=== PATIENT | male | born 1970 | race Caucasian/White ===

== ENCOUNTER 2020-07-03 19:55 | Inpatient (IN) | payer OTHER ==
--- NOTE | 2020-07-03 20:41 | HP ---
COWS - Scale Resting Pulse: 0= [place] 80 or Below Sweatin= Beads of Sweat on Face Restless Observation: 0= Sits Still Pupil Size: 0= Normal to Room Light Bone or Joint Aches: 2= Severe Diffuse Aches Runny Nose/ Eye Tearin= Runny Nose/Eyes GI Upset > 30mins: 2= Nausea/Diarrhea (diarrhea x 2) Tremor Observation: 2= Slight Tremor Visible Yawning Observation: 0= None Anxiety or Irritability: 4=Extreme Anxiety Goose Flesh Skin: 0=Smooth Skin COWS Score: 15 CIWA Score - Admission Criteria [facility] Guidelines: Admission for Medically Managed Detox: Requires at least one of the followin. CIWA greater than 12 2. Seizures within the past 24 hours 3. Delirium tremens within the past 24 hours 4. Hallucinations within the past 24 hours 5. Acute intervention needed for co occurring medical disorder 6. Acute intervention needed for co occurring psychiatric disorder 7. Severe withdrawal that cannot be handled at a lower level of care (continued vomiting, continued diarrhea, abnormal vital signs) requiring intravenous medication and/or fluids 8. Admission [facility] Chief Complaint: Seeking admission to detox from Heroin Allergies/Adverse Reactions: Allergies Allergy/AdvReac Type Severity Reaction Status Date / Time No Known Allergies Allergy Verified 07/03/20 20:45 History of Present Illness: 49 years old male with a history of heroin dependence is seeking admission to detox. This is first admission to [facility] but patient reports that he was admitted for detox here about 2003. He reports use of 7-10 bags ofr heroin daily. He has medical history of GERD, psych. history of depression and denies suicidal ideation at this time. He is unemployed, lives with his family and denies pending legal issues. He denies blackouts and overdose. Confidential Drug Utilization Report Search Terms: rayshawn palafox, 1970Search Date: 07/03/2020 20:39:18 PM The Drug Utilization Report below displays all of the controlled substance prescriptions, if any, that your patient has filled in the last twelve months. The information displayed on this report is compiled from pharmacy submissions to the Department, and accurately reflects the information as submitted by the pharmacies. Others' Prescriptions Patient Name: Rayshawn Wolf Date: 1970 Address: [address] [place] [id number]: Male Rx Written Rx Dispensed Drug Quantity Days Supply Prescriber Name Payment Method Dispenser 04/04/2020 04/26/2020 zolpidem tartrate 10 mg tablet 30 30 Juni, Purificacion (Dnp) Insurance [facility] 04/04/2020 04/10/2020 oxycodone hcl 20 mg tablet 90 30 Juni, Purificacion (Dnp) [facility] 04/04/2020 04/06/2020 dextroamp-amphetamin 30 mg tab 60 30 Juni, Purificacion (Dnp) [facility] 04/04/2020 04/04/2020 alprazolam 2 mg tablet 90 30 Juni, P urificacion (Dnp) Insurance [facility] 02/29/2020 03/08/2020 oxycodone hcl 20 mg tablet 90 30 Juni, Purificacion (Dnp) [facility] 02/29/2020 03/01/2020 dextroamp-amphetamin 30 mg tab 60 30 Juni, Purificacion (Dnp) [facility] 02/29/2020 02/29/2020 alprazolam 2 mg tablet 90 30 Juni, Purificacion (Dnp) Insurance [facility] 02/29/2020 02/29/2020 zolpidem tartrate 10 mg tablet 30 30 Juni, Purificacion (Dnp) Insurance [facility] 02/03/2020 02/07/2020 oxycodone hcl 20 mg tablet 90 30 Juni, Purificacion (Dnp) [facility] 01/23/2020 01/31/2020 dextroamp-amphetamin 30 mg tab 60 30 Juni, Purificacion (Dnp) [facility] 01/23/2020 01/24/2020 alprazolam 2 mg tablet 90 30 Juni, Purificacion (Dnp) Insurance [facility] 01/23/2020 01/23/2020 zolpidem tartrate 10 mg tablet 30 30 Juni, Purificacion (Dnp) Insurance [facility] Patient History - Patient Medical History Hx Anemia: No Hx Asthma: No Hx Chronic Obstructive Pulmonary Disease (COPD): No Hx Cancer: No Hx Cardiac Disorders: No Hx Congestive Heart Failure: No Hx Hypertension: No Hx Hypercholesterolemia: No Hx Pacemaker: No HX Cerebrovascular Accident: No Hx Seizures: No Hx Diabetes: No Hx Gastrointestinal Disorders: Yes (GERD) Hx Liver Disease: No Hx Genitourinary Disorders: No Hx Sexually Transmitted Disorders: No Hx Renal Disease (ESRD): No Hx Thyroid Disease: No Hx Human Immunodeficiency Virus (HIV): No (Negative ) Hx Hepatitis C: No Hx Depression: Yes Hx Suicide Attempt: No (Denies suicidal ideation at this time) Hx Bipolar Disorder: Yes Hx Schizophrenia: No - Patient Surgical History Past Surgical History: No - PPD History Previous Implant?: Yes Documented Results: Negative w/o proof Implanted On Prior [facility] Admission?: No PPD to be Administered?: Yes - Reproductive History Patient is a Female of Child Bearing Age (11 -55 yrs old): No (Male) - Smoking Cessation Smoking history: Current every day smoker Have you smoked in the past 12 months: Yes Aproximately how many cigarettes per day: 10 Hx Chewing Tobacco Use: No Initiated information on smoking cessation: Yes 'Breaking Loose' booklet given: 07/03/20 - Substance & Tx. History Hx Alcohol Use: No Hx Substance Use: Yes Substance Use Type: Cocaine, Heroin, Opiates Hx Substance Use Treatment: No - Substances abused Heroin Substance route: Inhalation Frequency: Daily Amount used: 7-10 bags Age of first use: 36 Date of last use: 07/03/20 Admission Physical Exam [facility] - Physical General Appearance: Yes: Moderate Distress, Tremorous, Anxious HEENTM: Yes: Rhinorrhea Respiratory: Yes: Lungs Clear, Normal Breath Sounds, No Respiratory Distress Neck: Yes: Within Normal Limits Breast: Yes: Breast Exam Deferred Cardiology: Yes: Within Normal Limits Abdominal: Yes: Normal Bowel Sounds Genitourinary: Yes: Within Normal Limits Back: Yes: Normal Inspection Musculoskeletal: Yes: Back pain Extremities: Yes: Tremors Neurological: Yes: Within Normal Limits Integumentary: Yes: Warm Lymphatic: Yes: Within Normal Limits - Diagnostic (1) Opioid dependence with withdrawal Current Visit: Yes Status: Acute (2) Nicotine dependence Current Visit: Yes Status: Chronic Qualifiers: Nicotine product type: cigarettes Substance use status: uncomplicated Qualified Code(s): F17.210 - Nicotine dependence, cigarettes, uncomplicated (3) GERD (gastroesophageal reflux disease) Current Visit: Yes Status: Chronic Qualifiers: Esophagitis presence: esophagitis presence not specified Qualified Code(s): K21.9 - Gastro-esophageal reflux disease without esophagitis (4) Depression Current Visit: Yes Status: Chronic Qualifiers: Depression Type: unspecified Qualified Code(s): F32.9 - Major depressive disorder, single episode, unspecified Cleared for Admission [facility] - Detox or Rehab [facility] Level of Care: Medically Managed Detox Regimen/Protocol: Methadone Claeared for Rehab Admission: No Breathalyzer - Breathalyzer Breathalyzer: 0 Urine Drug Screen - Test Device Lot number: [id number] Expiration date: 01/30/22 - Control Is test valid?: Yes - Results Drug screen NEGATIVE: No Urine drug screen results: PINO-Cocaine, FEN-Fentanyl, MOP-Opiates, OXY- Oxycodone, MTD-Methadone Inpatient Rehab Admission - Rehab Decision to Admit Inpatient rehab admission?: No
[2020-07-03] MEDS ORDERED: METHADONE HCL 10 MG TABLET (FOR DETOX USE ONLY) PO ONE (21:07)
[2020-07-03] MEDS ORDERED: ONDANSETRON *ODT* 4 MG TABLET SL PRN (21:07)
[2020-07-03] MEDS ORDERED: cloNIDine HCL 0.1 MG TABLET PO PRN (21:07)
[2020-07-03] MEDS ORDERED: MENTHOL/PHENOL 1 EACH UD MM PRN (21:07)
[2020-07-03] MEDS ORDERED: BISMUTH SUBSALICYLATE 524 MG/30 ML UD PO PRN (21:07)
[2020-07-03] MEDS ORDERED: MAGNESIUM HYDROX 2400MG/30ML ORAL SUSPENSION 30 ML CUP PO PRN (21:07)
[2020-07-03] MEDS ORDERED: hydrOXYzine PAMOATE 25 MG CAPSULE (FP) PO PRN (21:07)
[2020-07-03] MEDS ORDERED: ACETAMINOPHEN 325 MG TABLET (FP) PO PRN ×2 (21:07)
[2020-07-03] MEDS ORDERED: IBUPROFEN 400 MG TABLET (FP) PO PRN (21:07)
[2020-07-03] MEDS ORDERED: MAGNESIUM CITRATE 300 ML BOTTLE PO PRN (21:07)
[2020-07-03] MEDS ORDERED: NICOTINE POLACRILEX 2 MG GUM BUC PRN (21:07)
[2020-07-03] MEDS ORDERED: METHOCARBAMOL 500 MG TABLET PO PRN (21:07)
[2020-07-03] MEDS ORDERED: MAG HYDROX/AL HYDROX/SIMETH 30 ML UNIT-DOSE CUP PO PRN (21:07)
[2020-07-03 21:21] VITALS: BMI 27.3
[2020-07-03] MEDS: THIAMINE HCL 100 MG TABLET (FP) PO SCH (22:20)
[2020-07-03] MEDS: MELATONIN 5 MG TABLETS PO SCH (22:23)
[2020-07-04] MEDS ORDERED: METHADONE HCL 10 MG TABLET (FOR DETOX USE ONLY) ONE (09:14)
[2020-07-04] MEDS ORDERED: METHADONE HCL 5 MG TABLET (FOR DETOX USE ONLY) ONE (09:14)
[2020-07-04] MEDS ORDERED: METHADONE (DETOX) 20 MG, METHADONE (DETOX) 5 MG PO ONE (10:00)
[2020-07-04] MEDS: PRENATAL VITAMINS W/ FOLIC ACID TABLET (FP) PO SCH (10:20)
[2020-07-04] MEDS: NICOTINE 14 MG/24 HOURS TOPICAL PATCH TD SCH (10:20)
[2020-07-04 10:58] LABS: HEMATOCRIT 43.3 % (35.4-49); HEMOGLOBIN 14.5 GM/dL (11.7-16.9); MCH 29.3 pg (25.7-33.7); MCHC 33.6 g/dl (32.0-35.9); MEAN CELL VOLUME 87.2 fl (80-96); MEAN PLT VOLUME 8.3 fl (7.5-11.1); PLATELET COUNT 196 K/MM3 (134-434); RBC 4.96 M/mm3 (4.00-5.60); RDW 13.3 % (11.9-15.9); WHITE BLOOD COUNT 7.1 K/mm3 (4.0-10.0)
[2020-07-04 11:19] LABS: BILIRUBIN,TOTAL 0.6 mg/dL (0.2-1); BLOOD UREA NITROGEN 19.6 mg/dL (7-18); CALCIUM 8.9 mg/dL (8.5-10.1); POTASSIUM 4.1 mmol/L (3.5-5.1)
[2020-07-04 11:22] LABS: TOT PROT 7.2 g/dl (6.4-8.2)
--- NOTE | 2020-07-04 12:01 | PN ---
[facility] COWS - Scale Resting Pulse: 0= [place] 80 or Below Sweatin= Chills/Flushing Restless Observation: 1= Difficult to Sit Still Pupil Size: 0= Normal to Room Light Bone or Joint Aches: 1= Mild Discomfort Runny Nose/ Eye Tearin= Runny Nose/Eyes GI Upset > 30mins: 0= None Tremor Observation of Outstretched Hands: 1= Tremor [place], Not Seen Yawning Observation: 2= >3x During Session Anxiety or Irritability: 2=Irritable/Anxious Goose Flesh Skin: 0=Smooth Skin COWS Score: 10 BHS Progress Note (SOAP) Subjective: sweats chills body aches interrupted sleep agitation body aches Objective: 07/04/20 12:00 Vital Signs Temperature 97.5 F L 07/04/20 09:37 Pulse Rate 76 07/04/20 09:37 Respiratory Rate 18 07/04/20 09:37 Blood Pressure 105/56 L 07/04/20 09:37 O2 Sat by Pulse Oximetry (%) 97 07/04/20 09:37 Laboratory Tests 07/04/20 07/04/20 07/04/20 08:45 08:45 08:45 WBC 7.1 RBC 4.96 Hgb 14.5 Hct 43.3 MCV 87.2 MCH 29.3 MCHC 33.6 RDW 13.3 Plt Count 196 MPV 8.3 Sodium 143 Potassium 4.1 Chloride 108 H Carbon Dioxide 31 Anion Gap 4 L BUN 19.6 H Creatinine 1.0 Est GFR (CKD-EPI)AfAm 102.69 Est GFR (CKD-EPI)NonAf 88.61 Random Glucose 72 L Calcium 8.9 Total Bilirubin 0.6 AST 18 ALT 21 Alkaline Phosphatase 66 Total Protein 7.2 Albumin 4.0 Syphilis Serology Non-reactive labs noted aaox3 ambulating no acute distress Assessment: 07/04/20 12:01 withdrawals Plan: continue detox
--- NOTE | 2020-07-04 12:40 | EKG ---
Test Reason : Blood Pressure : / mmHG Vent. Rate : 074 BPM Atrial Rate : 074 BPM P-R Int : 120 ms QRS Dur : 096 ms QT Int : 394 ms P-R-T Axes : 048 078 066 degrees QTc Int : 437 ms NORMAL SINUS RHYTHM NORMAL ECG NO PREVIOUS ECGS AVAILABLE Confirmed by GRISELDA ARCINIEGA MD ([id number]) on 07/04/2020 12:40:02 PM Referred By: Kumar Alanis Confirmed By:GRISELDA ARCINIEGA MD
--- NOTE | 2020-07-04 14:46 | CONSULT ---
[facility] Psychiatric Consult - Data Date of interview: 07/04/20 Admission source: [facility] Identifying data: Draw Frame Tender approached patient for psychiatric consultation. Patient stated, " I'm fine i don't have to see you." Psychiatric consultation refused. Please order another psychiatric consultation if requested by patient.
[2020-07-04] MEDS: THIAMINE HCL 100 MG TABLET (FP) PO SCH (21:48)
[2020-07-04] MEDS: MELATONIN 5 MG TABLETS PO SCH (21:49)
[2020-07-05] MEDS ORDERED: METHADONE HCL 10 MG TABLET (FOR DETOX USE ONLY) PO ONE (10:00)
[2020-07-05] MEDS: NICOTINE 14 MG/24 HOURS TOPICAL PATCH TD SCH (10:38)
[2020-07-05] MEDS: PRENATAL VITAMINS W/ FOLIC ACID TABLET (FP) PO SCH (10:38)
--- NOTE | 2020-07-05 14:12 | PN ---
[facility] COWS - Scale Resting Pulse: 0= [place] 80 or Below Sweatin= No chills or Flushing Restless Observation: 0= Sits Still Pupil Size: 1= Pupils >than Normal Bone or Joint Aches: 2= Severe Diffuse Aches Runny Nose/ Eye Tearin= Nasal Congestion GI Upset > 30mins: 1= Stomach Cramp Tremor Observation of Outstretched Hands: 2= Slight Tremor Visible Yawning Observation: 1= 1-2x During Session Anxiety or Irritability: 2=Irritable/Anxious Goose Flesh Skin: 0=Smooth Skin COWS Score: 10 BHS Progress Note (SOAP) Subjective: alert,irritable,anxious,interrupted sleep,tremor,pain in the body ,nausea Objective: 07/05/20 14:11 Vital Signs Temperature 98.2 F 07/05/20 13:00 Pulse Rate 62 07/05/20 13:00 Respiratory Rate 17 07/05/20 13:00 Blood Pressure 126/73 07/05/20 13:00 O2 Sat by Pulse Oximetry (%) 100 07/05/20 13:00 Laboratory Last Values WBC 7.1 K/mm3 (4.0-10.0) 07/04/20 08:45 RBC 4.96 M/mm3 (4.00-5.60) 07/04/20 08:45 Hgb 14.5 GM/dL (11.7-16.9) 07/04/20 08:45 Hct 43.3 % (35.4-49) 07/04/20 08:45 MCV 87.2 fl (80-96) 07/04/20 08:45 MCH 29.3 pg (25.7-33.7) 07/04/20 08:45 MCHC 33.6 g/dl (32.0-35.9) 07/04/20 08:45 RDW 13.3 % (11.9-15.9) 07/04/20 08:45 Plt Count 196 K/MM3 (134-434) 07/04/20 08:45 MPV 8.3 fl (7.5-11.1) 07/04/20 08:45 Sodium 143 mmol/L (136-145) 07/04/20 08:45 Potassium 4.1 mmol/L (3.5-5.1) 07/04/20 08:45 Chloride 108 mmol/L (98-107) H 07/04/20 08:45 Carbon Dioxide 31 mmol/L (21-32) 07/04/20 08:45 Anion Gap 4 MMOL/L (8-16) L 07/04/20 08:45 BUN 19.6 mg/dL (7-18) H 07/04/20 08:45 Creatinine 1.0 mg/dL (0.55-1.3) 07/04/20 08:45 Est GFR (CKD-EPI)AfAm 102.69 07/04/20 08:45 Est GFR (CKD-EPI)NonAf 88.61 07/04/20 08:45 Random Glucose 72 mg/dL (74-106) L 07/04/20 08:45 Calcium 8.9 mg/dL (8.5-10.1) 07/04/20 08:45 Total Bilirubin 0.6 mg/dL (0.2-1) 07/04/20 08:45 AST 18 U/L (15-37) 07/04/20 08:45 ALT 21 U/L (13-61) 07/04/20 08:45 Alkaline Phosphatase 66 U/L (45-117) 07/04/20 08:45 Total Protein 7.2 g/dl (6.4-8.2) 07/04/20 08:45 Albumin 4.0 g/dl (3.4-5.0) 07/04/20 08:45 Syphilis Serology Non-reactive (NONREACTIVE) 07/04/20 08:45 COVID-19 (CAR) Not detected (Not Detected) 07/03/20 23:35 Assessment: 07/05/20 14:11 withdrawal symptom Plan: continue detox methadone regimen
[2020-07-05] MEDS: THIAMINE HCL 100 MG TABLET (FP) PO SCH (23:14)
[2020-07-05] MEDS: MELATONIN 5 MG TABLETS PO SCH (23:14)
[2020-07-06] MEDS ORDERED: METHADONE HCL 10 MG TABLET (FOR DETOX USE ONLY) ONE (09:26)
[2020-07-06] MEDS ORDERED: METHADONE HCL 5 MG TABLET (FOR DETOX USE ONLY) ONE (09:26)
[2020-07-06] MEDS ORDERED: METHADONE (DETOX) 10 MG, METHADONE (DETOX) 5 MG PO ONE (10:00)
[2020-07-06] MEDS: PRENATAL VITAMINS W/ FOLIC ACID TABLET (FP) PO SCH (10:58)
[2020-07-06] MEDS: NICOTINE 14 MG/24 HOURS TOPICAL PATCH TD SCH (10:58)
[2020-07-06 13:01] VITALS: BP 129/87; PULSE 65; TEMP 98.2
--- NOTE | 2020-07-06 16:54 | DS ---
[facility] Detox Discharge Summary Admission Date: 07/03/20 Discharge Date: 07/06/20 - History Present History: Opioid Dependence Additional Comments: Despite presence of lingering withdrawal symptoms and despite efforts by [employer] and by Nursing and Counseling Staff to address Patient's medical needs / concerns, Patient does not wish to remain to complete detox regimen. Risks of leaving Detox Unit against medical advice and prior to completion of Detox Regimen explained to Patient. Patient advised to go immediately to nearest ER should any intolerable withdrawal / detox symptoms develop at any time. Patient verbalized understanding of all information / recommendations presented to him prior to departure from detox unit. Patient left detox unit in stable medical condition. Pertinent Past History: Nicotine Dependence, GERD, Depression, Bipolar Disorder - Physical Exam Results Vital Signs: Vital Signs Temperature 98.2 F 07/06/20 12:43 Pulse Rate 65 07/06/20 12:43 Respiratory Rate 07/06/20 12:43 Blood Pressure 129/87 07/06/20 12:43 O2 Sat by Pulse Oximetry (%) 99 07/06/20 12:43 Pertinent Admission Physical Exam Findings: WITHDRAWAL SYMPTOMS. - Medication Discharge Medications: Ambulatory Orders NK [No Known Home Medication] 07/03/20 - Diagnosis (1) Opioid dependence with withdrawal Status: Acute (2) Depression Status: Chronic Qualifiers: Depression Type: unspecified Qualified Code(s): F32.9 - Major depressive disorder, single episode, unspecified (3) GERD (gastroesophageal reflux disease) Status: Chronic Qualifiers: Esophagitis presence: esophagitis presence not specified Qualified Code(s): K21.9 - Gastro-esophageal reflux disease without esophagitis (4) Nicotine dependence Status: Chronic Qualifiers: Nicotine product type: cigarettes Substance use status: uncomplicated Qualified Code(s): F17.210 - Nicotine dependence, cigarettes, uncomplicated - AMA Did Patient Leave Against Medical Advice: Yes (Patient did not wish to remain to complete Detox Regimen.)
[2020-07-07] MEDS ORDERED: METHADONE HCL 10 MG TABLET (FOR DETOX USE ONLY) PO ONE (10:00)
[2020-07-08] MEDS ORDERED: METHADONE HCL 5 MG TABLET (FOR DETOX USE ONLY) PO ONE (06:00)
== END 2020-07-06 13:34 | disposition left against medical advice (07) | DRG 770 ==
LOC: YASAS 19:55 → Y6N 21:38
PROVIDERS: ADMIT Allergy & Immunology; ATTEND Allergy & Immunology
PROC: HZ2ZZZZ Detoxification Services for Substance Abuse Treatment (ICD-10-PCS; principal; 2020-07-03)
DX: F11.23 Opioid dependence with withdrawal (principal); F17.210 Nicotine dependence, cigarettes, uncomplicated; F31.9 Bipolar disorder, unspecified; K21.9 Gastro-esophageal reflux disease without esophagitis
CPT/HCPCS: 36415; 80053; 85027; 86780; 93005; 93010; U0003